=== PATIENT | female | born 1955 | race Caucasian/White ===

== ENCOUNTER → 2024-01-18 10:17 | Outpatient (REF) | payer OTHER, SELFPAY | LOC: HWRCS 10:17 | PROVIDERS: ATTENDING PHYSICIAN Internal Medicine Cardiovascular Disease; FAMILY PHYSICIAN Family Medicine | DX: R06.02 Shortness of breath (principal) | CPT/HCPCS: 93306 ==

== ENCOUNTER → 2024-01-23 07:26 | Outpatient (REF) | payer OTHER, SELFPAY ==
--- NOTE | 2024-01-23 09:38 | CARDSERVDEF ---
Echocardiogram with Definity completed after protocol screening completed. Allergies verified.
Patent IV site: ____R hand_
IV site flushed with 0.9% NaCl pre and post administration.
Diluted bolus method utilized to enhance visualization of ventricular kaur.
Total volume given: __5__ mL
Patient tolerated all procedures well without complications.
== END ==
LOC: RCS 07:26
PROVIDERS: ATTENDING PHYSICIAN Internal Medicine Cardiovascular Disease; FAMILY PHYSICIAN Family Medicine
DX: R06.02 Shortness of breath (principal)
CPT/HCPCS: 93017; 93350; Q9957

== ENCOUNTER 2024-06-15 16:02 | Emergency (ER) | payer OTHER, SELFPAY ==
[2024-06-15] VITALS (12 sets, daily range): BP systolic 109–140; BP diastolic 69–89
[2024-06-15] MEDS: NSS 1000 IV (16:29)
[2024-06-15] MEDS: ADENOCARD 6 MG IV (16:31)
--- NOTE | 2024-06-15 16:38 | ED.GENMED ---
History of Present Illness
General
Chief Complaint: Heart Rate Problem
Source: patient
Time Seen by Provider: 06/15/24 16:17
History of Present Illness
History of Present Illness:
69yoF with a history of paroxysmal atrial fibrillation not on medications presenting with her for evaluation of palpitations. Symptoms began around 2 PM this afternoon while she was out to lunch with a friend. She reports feeling Her
heart is racing. Symptoms feel similar to her prior episodes of A-fib. She denies any associated dizziness, syncope, chest pain, shortness of breath. Patient states she has been very stressed recently which is a frequent trigger for her episodes.
She has had 3 episodes of atrial fibrillation over the past 5 years. She is prescribed metoprolol which she takes as needed.
Phy Exam
General Physical Exam
General Presentation: well appearing
General age: appears stated age
General Skin: warm and dry
General Habitus: normal
General Mental: alert
ENT Exam
ENT Exam: normocephalic
Cardiovascular Exam
Cardiovascular Exam: no edema and tachycardia
Pulmonary Exam
Pulmonary Exam: lungs clear, no respiratory distress, no crackles and no wheezing
Neurological Exam
Neurological Exam: alert
Pierre Coma Scale
Eye Opening: Spontaneous
Verbal Response: Oriented
Motor Response: Obeys Commands
GCS Total Score: 15
Skin Exam
Skin Exam: normal color and warm/dry
Psychiatric Exam
Psychiatric Exam: normal mood/affect
Course
Orders/Labs/Results
Orders:
Orders
06/15/24 16:03
Electrocardiogram (*1) Urgent
Reason for Study: Palpitations
EKG- Treatment ONCE
06/15/24 16:17
EKG [Electrocardiogram (*1)] Urgent
Reason for Study: Tachycardia
06/15/24 16:18
EKG- Treatment ONCE
06/15/24 16:21
0.9% Sodium Chloride 1000 ml [Nss] 1,000 ml IV BOLUS
Adenosine [Adenocard] 6 mg IV NOW STA
06/15/24 16:24
Adenosine [Adenocard] 18 mg .ROUTE .STK-MED ONE
06/15/24 16:25
Complete Blood Count/With Diff Urgent
Comprehensive Metabolic Panel Urgent
Free T4 Urgent
Magnesium Urgent
TSH Reflex To Free T4 Urgent
06/15/24 17:09
Troponin I Urgent
Abnormal Lab Results
06/15/24
16:25
WBC 11.1 H 10^3/uL
(4.8-10.8)
Absolute Neuts (auto) 7.1 H 10^3/uL
(1.4-6.5)
Absolute Monos (auto) 0.8 H 10^3/uL
(0.1-0.6)
BUN 21 H mg/dl
(7-17)
Creatinine 1.2 H mg/dL
(0.6-1.0)
Glucose 157 H mg/dl
(70-99)
TSH (Reflex) 5.43 H uIU/ml
(0.47-4.68)
06/15/24 16:25
06/15/24 16:25
Vital Signs
Initial and Last Documented VS:
Initial Vital Signs
Temp Resp BP Pulse Ox
98.3 F 16 113/79 98
06/15/24 16:03 06/15/24 16:03 06/15/24 16:03 06/15/24 16:03
Last Documented Vital Signs
Temp Pulse Resp BP Pulse Ox
98.3 F 71 16 112/69 96
06/15/24 16:03 06/15/24 19:35 06/15/24 19:35 06/15/24 19:35 06/15/24 19:35
MDM/Problems Addressed
Differential Diagnosis Includes:
69yoF here with palpitations x 2 days. Hx of afib, only on metoprolol PRN. No associated CP or SOB. Heart rate 190 in triage. Remainder of vitals are stable. She is nontoxic-appearing on exam. Differential diagnosis includes but is not limited
to: SVT, atrial fibrillation with RVR, sinus tachycardia, electrolyte abnormality, thyroid dysfunction
EKG from triage shows SVT with a HR of [address]/T wave changes likely rate related. Patient placed on jewelry setter and cardiac pads. Vagal maneuvers attempted without success. 6mg IV adenosine ordered with conversion to sinus
tachycardia with HR in the 110-120s. Repeat EKG confirms sinus rhythm. Cardiac labs, TSH, and magnesium ordered.
*EKG
Interpreted by ED Provider?: Yes
EKG Intrepretation Date: 06/15/24
Heart Rate: 190
Rate: tachycardiac
Rhythm: SVT
[place]: normal axis
Interval: normal interval
QRS Pattern: normal QRS
Ischemia: non-specific ST changes
*Critical Care Note
Total Time (30-74mins, 75-104mins- exclusive of procedures): 35
Update Note
Update Note:
TSH elevated at 5.4 although free T4 is negative. Remainder of labs overall unremarkable including normal electrolytes and TSH. Patient monitored for several hours post adenosine administration. She remains in NSR, no further events on telemetry.
She is asymptomatic on reassessment. She is stable for discharge. Patient advised to take metoprolol regularly instead of just PRN. Advised close f/u with cardiology. ED return precautions discussed. She expressed understanding and is agreeable to
plan. She was discharged in stable condition.
ED Attending Note
-
Portions of this chart may have been created with voice recognition software.� Occasional wrong word or��sound alike� substitutions may have occurred due to the inherent limitations of voice recognition software.
Discharge Plan
Departure
Patient Disposition: Home (Routine Discharge)
Date of Disposition: 06/15/24
Time of Disposition: 19:11
Patient with high blood pressure during this ER visit?: No
Discharge Problem:
SVT (supraventricular tachycardia)
Instructions: Supraventricular tachycardia (SVT)
Prescriptions:
No Action
vitamin A 2,400 mcg Capsule
2,400 mcg PO DAILY
acetaminophen [Tylenol] 325 mg Tablet
650 mg PO Q6HPRN PRN (Reason: mild pain)
Theragen Tablet
1 tab PO DAILY
potassium 99 mg Tablet
99 mg PO DAILY
calcium carbonate [Calcium 500] 500 mg calcium (1,250 mg) Tablet
500 mg PO DAILY
ascorbic acid (vitamin C) [Vitamin C] 500 mg Tablet
500 mg PO DAILY
metoprolol succinate 25 mg Tablet Extended Release 24 Hr
12.5 mg PO DAILYPRN PRN (Reason: heartrate)
vitamin E 268 mg (400 unit) Capsule
268 mg PO DAILY
cholecalciferol (vitamin D3) [Vitamin D3] 50 mcg (2,000 unit) Tablet
50 mcg PO DAILY
magnesium oxide 400 mg magnesium Tablet
400 mg PO DAILY
Referrals:
Petra Luna MD [Family Provider] -
Activity Restrictions/Additional Instructions:
Take metoprolol as prescribed by your client resolution specialist.
Please call your client resolution specialist on Tuesday for close follow-up. Return to the ER with any new or worsening symptoms.
Interventions
Interventions:
*Risk Screen - Suicide Last Done: 06/15/24 16:07
*General Assessment Last Done: 06/15/24 16:25
*Neglect/Abuse Screening Last Done: 06/15/24 16:07
ED- Fall Risk Assessment Last Done: 06/15/24 16:25
*ED COVID-19 Vaccine History Last Done: 06/15/24 16:06
*Nursing Disposition Last Done: 06/15/24 19:35
ED- Cardiac Assessment Last Done: 06/15/24 16:25
ED- Pulmonary Assessment Last Done: 06/15/24 16:25
Discharge Date and Time
Discharge Date/Time: 06/15/24 19:35
Print Language: MALAY
[2024-06-15 16:42] LABS: % Basophils 0.7 % (0-2); % Eosinophils 1.9 % (0-6); % Immature Granulocytes 0.4 % (0-0.5); % Lymphocytes 26.1 % (20.5-51.1); % Neutrophils 63.9 % (42.2-75.2); Absolute Basophils 0.1 10^3/uL (0-0.2); Absolute Eosinophils 0.2 10^3/uL (0-0.7); Absolute Lymphocytes 2.9 10^3/uL (1.2-3.4); Absolute Monocytes 0.8 10^3/uL (0.1-0.6); Absolute Neutrophils 7.1 10^3/uL (1.4-6.5); Hematocrit 44.3 % (37.0-47.0); Hemoglobin 15.1 g/dL (12.0-16.0); Mean Corp Hgb Conc. 34.1 g/dL (33.0-37.0); Mean Corpuscular Hgb 28.7 pg (27.0-31.0); Mean Corpuscular Volume 84.2 fL (81.0-99.0); Mean Platelet Volume 10.3 fL (7.4-10.4); Nucleated Red Blood Cells % 0 %; Platelet Count 292 10^3/uL (130-400); Red Blood Cell Count 5.26 10^6/uL (4.20-5.40); Red Cell Dist. Width 12.6 % (11.5-14.5); White Blood Cell Count 11.1 10^3/uL (4.8-10.8)
[2024-06-15 16:53] LABS: ALT (SGPT) 31 U/L (0-35); AST (SGOT) 30 U/L (14-36); Albumin 4.6 g/dl (3.5-5.0); Alkaline Phosphatase 66 U/L (38-126); Blood Urea Nitrogen 21 mg/dl (7-17); Calcium 9.9 mg/dl (8.4-10.2); Carbon Dioxide 24 mmol/L (22-30); Glucose 157 mg/dl (70-99); Magnesium 1.9 mg/dl (1.6-2.3); Total Bilirubin 0.3 mg/dl (0.2-1.3); Total Protein 7.8 g/dl (6.3-8.2); eGFR 49.61
[2024-06-15 17:11] LABS: Chloride 104 mmol/L (98-107); Potassium 4.5 mmol/L (3.5-5.1); Sodium 142 mmol/L (135-145)
[2024-06-15 17:40] LABS: Troponin I 0.028 ng/ml
[2024-06-15 18:41] LABS: Free T4 1.12 ng/dl (0.78-2.19)
[2024-06-15 19:26] LABS: TSH Reflex To Free T4 5.43 uIU/ml (0.47-4.68)
== END 2024-06-15 19:35 | disposition home or self-care (01) ==
LOC: EMR 16:02
PROVIDERS: Physician Assistant; EMERGENCY PHYSICIAN Emergency Medicine; FAMILY PHYSICIAN Family Medicine
DX: I47.10 Supraventricular tachycardia, unspecified (principal); I48.0 Paroxysmal atrial fibrillation
CPT/HCPCS: 99283; 96374; 96361; 80053; 83735; 84439; 84443; 84484; 85025; 93005; J0153

== ENCOUNTER 2024-09-11 00:59 | Emergency (ER) | payer OTHER, SELFPAY ==
[2024-09-11 01:13] VITALS: BMI 36.6
[2024-09-11 01:16] VITALS: BP 94/57
[2024-09-11] MEDS: ADENOCARD 6 MG IV (01:25)
[2024-09-11 01:27] VITALS: BP 139/88
--- NOTE | 2024-09-11 01:35 | ED.GENMED ---
History of Present Illness
General
Chief Complaint: Heart Rate Problem
Source: patient
Exam Limitations: none
Time Seen by Provider: 09/11/24 01:12
Nursing documentation reviewed up to this point in time: agreed with
History of Present Illness
History of Present Illness:
Patient with history of paroxysmal atrial fibrillation and SVT, presents to ED secondary to recurrent chest palpitations with lightheadedness, while watching TV at home, shortly prior to arrival. Denies chest pain. Denies shortness of breath.
Denies nausea or vomiting. Denies headache. Denies recent illness. Denies recent change in medications or diet. In fact, patient does not take any medications daily. However, patient states that she has seen medical billing and coding specialist approxi-1 year ago,
during which time medication was recommended, which she is currently not taking.
Review of Systems
Review of Systems
Allergies reviewed?: Yes
All Other Systems: ROS reviewed and negative except as documented in HPI and ROS
Constitutional: Reports no symptoms
Respiratory: Reports no symptoms; Denies trouble breathing
Cardiac: Reports palpitations; Denies chest pain
ABD/GI: Reports no symptoms
Musculoskeletal: Reports no symptoms
Skin: Reports no symptoms
Neurological: Reports no symptoms
Phy Exam
Physical Exam
Physical Exam:
Physical Exam
General: mild distress, not acutely ill. afebrile
Head: nc/at. eomi
Neck: supple. no meningeal signs.
Heart: tachycardic, no murmur.
Lungs: no acute respiratory distress. clear bilaterally
Abdomen: normal bowel sounds. not tender.
Neuro: alert and oriented x 3. no focal neurological deficits
Skin: no rash
Psychiatric: well kept. interactive and cooperative
Extremities: no edema. no calf tenderness.
Course
Orders/Labs/Results
Orders:
Orders
09/11/24 00:59
Electrocardiogram (*1) Urgent
Reason for Study: Atrial Fibrillation
09/11/24 01:00
EKG- Treatment ONCE
09/11/24 01:14
Adenosine [Adenocard] 6 mg .ROUTE .STK-MED ONE
09/11/24 01:20
Complete Blood Count/With Diff Urgent
09/11/24 01:24
Adenosine [Adenocard] 6 mg IV NOW STA
09/11/24 01:25
EKG [Electrocardiogram (*1)] Urgent
Reason for Study: Tachycardia
EKG- Treatment ONCE
09/11/24 01:31
EKG [Electrocardiogram (*1)] Urgent
Reason for Study: Tachycardia
EKG- Treatment ONCE
09/11/24 01:45
Comprehensive Metabolic Panel Urgent
Comment: REDRAW
Magnesium Urgent
09/11/24 02:45
Potassium Chloride [KCl] 40 meq PO NOW STA
Abnormal Lab Results
09/11/24 09/11/24
01:20 01:45
Absolute Lymphs (auto) 4.5 H 10^3/uL
(1.2-3.4)
Absolute Monos (auto) 1.0 H 10^3/uL
(0.1-0.6)
Potassium 3.3 L mmol/L
(3.5-5.1)
Chloride 110 H mmol/L
(98-107)
Carbon Dioxide 19 L mmol/L
(22-30)
BUN 20 H mg/dl
(7-17)
Glucose 150 H mg/dl
(70-99)
Calcium 7.9 L mg/dl
(8.4-10.2)
Total Protein 5.9 L g/dl
(6.3-8.2)
Albumin 3.4 L g/dl
(3.5-5.0)
09/11/24 01:20
09/11/24 01:45
Vital Signs
Initial and Last Documented VS:
Initial Vital Signs
Temp Pulse Resp Pulse Ox
97.9 F 190 20 99
09/11/24 01:06 09/11/24 01:06 09/11/24 01:06 09/11/24 01:06
Last Documented Vital Signs
Temp Pulse Resp BP Pulse Ox
97.9 F 85 13 116/64 99
09/11/24 01:06 09/11/24 02:45 09/11/24 02:45 09/11/24 02:00 09/11/24 01:06
MDM/Problems Addressed
MDM/Problems Addressed:
Patient evaluated immediately upon arrival secondary to increased heart rate secondary to SVT. Valsalva maneuver performed at bedside, without improvement. As such, decision made to administer adenosine 6 mg IV, with resolution of SVT. Repeat EKG
confirms sinus rhythm. Patient will be observed further with blood work, along with IV fluid administration.
Patient remained stable in sinus rhythm during observation. Potassium repleted. Patient will be advised to continue hydration at home, along with cardiology follow-up, as an outpatient.
Critical care statement: A total of 30 minutes of critical care time was provided for this patient. This includes management of unstable vital signs, evaluation of the patient at bedside, reviewing the patient's pertinent medical records, review of
old EKGs and review of pertinent medical records. This time with separate from time utilized to perform the aforementioned documented procedures
*EKG
Interpreted by ED Provider?: Yes
EKG Intrepretation Date: 09/11/24
Heart Rate: 190
Rate: tachycardiac
Rhythm: SVT
[place]: normal axis
*Critical Care Note
Total Time (30-74mins, 75-104mins- exclusive of procedures): 30 min
ED Attending Note
-
Portions of this chart may have been created with voice recognition software.� Occasional wrong word or��sound alike� substitutions may have occurred due to the inherent limitations of voice recognition software.
Discharge Plan
Departure
Patient Disposition: Home (Routine Discharge)
Date of Disposition: 09/11/24
Time of Disposition: 02:50
Patient with high blood pressure during this ER visit?: No
Condition: Good
Discharge Problem:
SVT (supraventricular tachycardia), Hypokalemia
Instructions: Hypokalemia, Supraventricular tachycardia (SVT), High-potassium diet
Prescriptions:
No Action
No Current Medications
0
Referrals:
Petra Luna MD [Family Provider] -
Scar Segura DO [Active] -
Activity Restrictions/Additional Instructions:
As discussed, please follow-up with your medical billing and coding specialist for further evaluation and treatment.
Interventions
Interventions:
*Risk Screen - Suicide Last Done: 09/11/24 01:06
*General Assessment Last Done: 09/11/24 01:06
*Neglect/Abuse Screening Last Done: 09/11/24 01:06
ED- Fall Risk Assessment Last Done: 09/11/24 01:18
*ED COVID-19 Vaccine History Last Done: 09/11/24 03:06
*Nursing Disposition Last Done: 09/11/24 03:06
ED- Cardiac Assessment Last Done: 09/11/24 01:18
ED- Pulmonary Assessment Last Done: 09/11/24 01:18
Discharge Date and Time
Discharge Date/Time: 09/11/24 03:06
Print Language: SAMI
[2024-09-11 01:36] LABS: % Basophils 0.9 % (0-2); % Eosinophils 3.1 % (0-6); % Immature Granulocytes 0.2 % (0-0.5); % Lymphocytes 41.4 % (20.5-51.1); % Monocytes 8.8 % (1.7-9.3); % Neutrophils 45.6 % (42.2-75.2); Absolute Basophils 0.1 10^3/uL (0-0.2); Absolute Eosinophils 0.3 10^3/uL (0-0.7); Absolute Lymphocytes 4.5 10^3/uL (1.2-3.4); Absolute Neutrophils 4.9 10^3/uL (1.4-6.5); Hemoglobin 15.3 g/dL (12.0-16.0); Mean Corpuscular Hgb 28.5 pg (27.0-31.0); Mean Platelet Volume 10.2 fL (7.4-10.4); Nucleated Red Blood Cells % 0 %; Platelet Count 297 10^3/uL (130-400); Red Blood Cell Count 5.36 10^6/uL (4.20-5.40); Red Cell Dist. Width 12.6 % (11.5-14.5); White Blood Cell Count 10.8 10^3/uL (4.8-10.8)
[2024-09-11 02:00] VITALS: BP 116/64
[2024-09-11 02:07] LABS: ALT (SGPT) 21 U/L (0-35); AST (SGOT) 19 U/L (14-36); Albumin 3.4 g/dl (3.5-5.0); Alkaline Phosphatase 77 U/L (38-126); Blood Urea Nitrogen 20 mg/dl (7-17); Calcium 7.9 mg/dl (8.4-10.2); Carbon Dioxide 19 mmol/L (22-30); Chloride 110 mmol/L (98-107); Estimated Creatinine Clearance 88 ml/min; Glucose 150 mg/dl (70-99); Magnesium 1.8 mg/dl (1.6-2.3); Potassium 3.3 mmol/L (3.5-5.1); Sodium 138 mmol/L (135-145); Total Bilirubin 0.5 mg/dl (0.2-1.3); Total Protein 5.9 g/dl (6.3-8.2); eGFR > 60.00
[2024-09-11] MEDS: KCL 40 MEQ PO (02:50)
== END 2024-09-11 03:06 | disposition home or self-care (01) ==
LOC: EMR 00:59
PROVIDERS: Emergency Medicine; EMERGENCY PHYSICIAN Emergency Medicine; FAMILY PHYSICIAN Family Medicine
DX: I47.10 Supraventricular tachycardia, unspecified (principal); E87.6 Hypokalemia; I48.0 Paroxysmal atrial fibrillation
CPT/HCPCS: 99291; 96374; 80053; 83735; 85025; 93005; J0153

== ENCOUNTER 2024-10-06 18:21 | Emergency (ER) | payer OTHER, SELFPAY ==
[2024-10-06 18:25] VITALS: BP 162/102
[2024-10-06 19:52] VITALS: BP 135/77
[2024-10-06 20:00] VITALS: BP 125/83
[2024-10-06 21:00] VITALS: BP 123/68
--- NOTE | 2024-10-06 21:02 | ED.GENMED ---
History of Present Illness
General
Chief Complaint: Heart Rate Problem
Source: patient and spouse
Exam Limitations: none
Time Seen by Provider: 10/06/24 20:54
Nursing documentation reviewed up to this point in time: agreed with
History of Present Illness
History of Present Illness:
69-year-old female past medical history of SVT presenting to the emergency department today with concerns of palpitations prior to arrival that have since resolved. Denies any ongoing symptoms throughout her stay here. Has followed up with
cardiology in the past that did not recommend any medications for similar symptoms.
Review of Systems
Review of Systems
Allergies reviewed?: Yes
All Other Systems: ROS reviewed and negative except as documented in HPI and ROS
Phy Exam
Physical Exam
Physical Exam:
GENERAL: Alert , in no apparent distress
EYE: pupils equal and reactive
NECK: Supple, no significant adenopathy.
ENT: o/p clr, mmm.
CARDIAC: Regular rate and rhythm .
LUNGS: Clear breath sounds bilaterally, no acute respiratory distress, no wheezes/rales/rhonchi
ABDOMEN: Soft, without focal tenderness, no r/g, no cvat
NEUROLOGICAL: Alert and oriented, no focal neuro deficits
SKIN: Warm and dry, skin intact.
MUSCULOSKELETAL: No edema, well perfused.
PSYCH: Normal and appropriate interaction.
Course
Orders/Labs/Results
Orders:
Orders
10/06/24 18:22
Electrocardiogram (*1) Urgent
Reason for Study: Tachycardia
EKG- Treatment ONCE
Vital Signs
Initial and Last Documented VS:
Initial Vital Signs
Temp Pulse Resp BP Pulse Ox
98.4 F 107 16 162/102 96
10/06/24 18:25 10/06/24 18:25 10/06/24 18:25 10/06/24 18:25 10/06/24 18:25
Last Documented Vital Signs
Temp Pulse Resp BP Pulse Ox
98.4 F 71 16 123/68 97
10/06/24 18:25 10/06/24 21:00 10/06/24 21:00 10/06/24 21:00 10/06/24 21:00
MDM/Problems Addressed
MDM/Problems Addressed:
69-year-old female presenting to the emergency department today with concerns of palpitations prior to arrival lasted about a half an hour and then resolved on her way to the ER. On arrival she is initially mildly tachycardic in sinus rhythm during
my assessment patient had normal vital signs in no distress and was requesting to leave. It was offered to her to get additional testing including labs and further monitoring. She claims she follow-up otherwise feels well. She was given strict
return precautions for worsening symptoms.
*Critical Care Note
Total Time (30-74mins, 75-104mins- exclusive of procedures): Not Applicable
ED Attending Note
-
Portions of this chart may have been created with voice recognition software.� Occasional wrong word or��sound alike� substitutions may have occurred due to the inherent limitations of voice recognition software.
Discharge Plan
Departure
Patient Disposition: Home (Routine Discharge)
Date of Disposition: 10/06/24
Time of Disposition: 21:03
Patient with high blood pressure during this ER visit?: No
Condition: Good
Covid-19: Not Applicable
Discharge Problem:
Heart palpitations
Instructions: Palpitations (DC)
Prescriptions:
No Action
No Current Medications
0
Referrals:
Petra Luna MD [Family Provider] -
Rosalind Martinez, [Active] - Follow up in 10 days
Activity Restrictions/Additional Instructions:
You came to the emergency department today with concerns of palpitations. Here your EKG was reassuring and your cardiac monitoring was reassuring. Please follow closely with cardiology. Return for any recurrence of symptoms.
Interventions
Interventions:
*Risk Screen - Suicide Last Done: 10/06/24 18:27
*Neglect/Abuse Screening Last Done: 10/06/24 18:27
ED- Fall Risk Assessment Last Done: 10/06/24 21:06
*ED COVID-19 Vaccine History Last Done: 10/06/24 21:06
*Nursing Disposition Last Done: 10/06/24 21:06
ED- Cardiac Assessment Last Done: 10/06/24 21:06
ED- Pulmonary Assessment Last Done: 10/06/24 21:06
Discharge Date and Time
Discharge Date/Time: 10/06/24 21:07
Print Language: TAMAZIGHT
== END 2024-10-06 21:07 | disposition home or self-care (01) ==
LOC: EMR 18:21
PROVIDERS: EMERGENCY PHYSICIAN Student in an Organized Health Care Education/Training Program; FAMILY PHYSICIAN Family Medicine
DX: R00.2 Palpitations (principal)
CPT/HCPCS: 99283; 93005

== ENCOUNTER 2024-11-25 19:36 | Emergency (ER) | payer OTHER, SELFPAY ==
[2024-11-25 19:52] VITALS: BMI 38.7
--- NOTE | 2024-11-25 19:53 | ED.GENMED ---
History of Present Illness
General
Chief Complaint: Heart Rate Problem
Time Seen by Provider: 11/25/24 19:53
History of Present Illness
History of Present Illness:
TIME OF INITIAL ENCOUNTER: 7:55 PM
HPI: Patient presents with palpitations. This feels similar to the times she has had SVT in the past. She is no longer taking any beta-nuris as she was told that the dose that she would on probably would not prevent this from occurring. She
does seen Dr. Ferrer in the past. She has tried vagal maneuvers at home which have not helped.
EXAM:
GENERAL: Well appearing in no distress
HEENT: Moist oral mucosa
CARDIOVASCULAR: No murmurs, tachycardic heart rate, regular rhythm, No chest wall tenderness
PULMONARY: No respiratory distress, breath sounds are clear and equal
ABDOMEN: Soft with no peritoneal signs, no tenderness
NEUROLOGIC: Excellent strength all extremities, no coordination deficits
PSYCHIATRIC: Appropriate mental status, normal insight and judgement
EXTREMITIES: Nontender, no edema, moves all extremities equally
SKIN: No rash, no lesions
NUMBER AND COMPLEXITY OF PROBLEMS ADDRESSED AT THE ENCOUNTER
� Chronic conditions affecting care: SVT
� Acute Exacerbation and/or Progression of Chronic Illness: This is an acute but recurrent problem
� Differential Diagnosis includes: SVT, atrial tachycardia, atrial flutter, sinus tachycardia, hypokalemia
AMOUNT AND/OR COMPLEXITY OF DATA TO BE REVIEWED AND ANALYZED
� I performed an independent evaluation of and my interpretation is:
EKG: SVT rate of 185, ST abnormality likely rate related
CT:
X-rays:
Laboratory Studies: White count 14.2, hemoglobin normal, potassium 4.3, glucose 172 otherwise labs unremarkable
Other:
� Review of other/old records: I reviewed records and she has had similar episodes in the past and has been hypokalemic in the past
� Clinical information was obtained by an independent historian: I spoke to her at bedside
� Prescriptions/Medications Considered but not given:
� Further testing considered but not performed:
RISK OF COMPLICATIONS AND/OR MORBIDITY OR MORTALITY OF PATIENT MANAGEMENT
� Social determinants of health affecting care: Lives at home
� Discussion with other providers:
� Escalation of care including admission/observation vs risk of discharge considered: The patient was seen immediately upon arrival with rates in the 180s and monitoring consistent with SVT. She attempted vagal maneuvers but
this was not successful x 2. We then gave 6 mg of adenosine as she states that this dose usually works for her. This worked on the first attempt. She is now sinus with rate of about 100.
ANY OTHER UPDATES:
The patient did go back into SVT about an hour after initial adenosine given. We then gave another 6 mg of adenosine, IV Lopressor and she did convert, we also gave oral metoprolol. She wishes to be seen by the other cardiology group as he was not
happy with the cardiology that she saw initially ([facility]).
Phy Exam
Physical Exam
Physical Exam:
See HPI
Course
Orders/Labs/Results
Orders:
Orders
11/25/24 19:39
Electrocardiogram (*1) Urgent
Reason for Study: Tachycardia
EKG- Treatment ONCE
11/25/24 20:02
Complete Blood Count/With Diff Urgent
Comprehensive Metabolic Panel Urgent
Free T4 Urgent
Magnesium Urgent
TSH Reflex To Free T4 Urgent
11/25/24 20:03
Electrocardiogram (*1) Urgent
Reason for Study: Palpitations
EKG- Treatment ONCE
11/25/24 20:04
Electrocardiogram (*1) Urgent
Reason for Study: Palpitations
EKG- Treatment ONCE
11/25/24 20:39
Adenosine [Adenocard] 6 mg IV NOW STA
Adenosine [Adenocard] 6 mg IV NOW STA
Metoprolol [Lopressor] 5 mg .ROUTE .STK-MED ONE
Metoprolol [Lopressor] 5 mg IV NOW STA
11/25/24 20:43
Metoprolol [Lopressor] 5 mg IV NOW STA
11/25/24 21:12
Metoprolol Xl [Toprol Xl] 25 mg PO NOW STA
Abnormal Lab Results
11/25/24
20:02
WBC 14.2 H 10^3/uL
(4.8-10.8)
Absolute Neuts (auto) 8.7 H 10^3/uL
(1.4-6.5)
Absolute Lymphs (auto) 4.1 H 10^3/uL
(1.2-3.4)
Absolute Monos (auto) 1.0 H 10^3/uL
(0.1-0.6)
BUN 30 H mg/dl
(7-17)
Glucose 172 H mg/dl
(70-99)
TSH (Reflex) 6.08 H uIU/ml
(0.47-4.68)
11/25/24 20:02
11/25/24 20:02
Vital Signs
Blood pressure: 126/75
Initial and Last Documented VS:
Initial Vital Signs
Temp Pulse Resp Pulse Ox
36.6 C 197 18 98
11/25/24 19:39 11/25/24 19:39 11/25/24 19:39 11/25/24 19:39
Last Documented Vital Signs
Temp Pulse Resp BP Pulse Ox
36.6 C 79 19 126/75 96
11/25/24 19:39 11/25/24 21:28 11/25/24 19:55 11/25/24 21:28 11/25/24 19:55
*Critical Care Note
Total Time (30-74mins, 75-104mins- exclusive of procedures): Not Applicable
ED Attending Note
-
Portions of this chart may have been created with voice recognition software.� Occasional wrong word or��sound alike� substitutions may have occurred due to the inherent limitations of voice recognition software.
Discharge Plan
Departure
Patient Disposition: Home (Routine Discharge)
Date of Disposition: 11/25/24
Time of Disposition: 21:22
Patient with high blood pressure during this ER visit?: Yes
Discharge Problem:
SVT (supraventricular tachycardia)
Instructions: Supraventricular tachycardia (SVT)
Prescriptions:
New
metoprolol succinate 25 mg tablet extended release 24 hr
25 mg PO DAILY Qty: 30 0RF
Referrals:
Vladimir Akhtar MD [Active] - Follow up in 1 week
Activity Restrictions/Additional Instructions:
We gave you 6 mg of adenosine successfully converted due to a normal rhythm and then it recurred so we gave you a second dose. We then gave you 5 mg of IV Lopressor and I recommend that you go on metoprolol orally daily. At your request, I have
given you the contact information for a different technical research scientist in the other cardiology group affiliated with [facility] cardiology, Dr. Akhtar. Return here if worse or other concerns.
Interventions
Interventions:
*Risk Screen - Suicide Last Done: 11/25/24 19:39
*General Assessment Last Done: 11/25/24 19:39
*Neglect/Abuse Screening Last Done: 11/25/24 19:39
*Nursing Disposition Last Done: 11/25/24 21:47
ED- Cardiac Assessment Last Done: 11/25/24 19:53
Discharge Date and Time
Discharge Date/Time: 11/25/24 21:48
Print Language: GUATEMALAN
[2024-11-25 20:15] LABS: Hematocrit 43.9 % (37.0-47.0); Hemoglobin 15.2 g/dL (12.0-16.0); Mean Corp Hgb Conc. 34.6 g/dL (33.0-37.0); Mean Corpuscular Hgb 29.2 pg (27.0-31.0); Mean Corpuscular Volume 84.4 fL (81.0-99.0); Mean Platelet Volume 10.1 fL (7.4-10.4); Platelet Count 276 10^3/uL (130-400); Red Cell Dist. Width 12.7 % (11.5-14.5); White Blood Cell Count 14.2 10^3/uL (4.8-10.8)
[2024-11-25 20:33] LABS: % Basophils 0.6 % (0-2); % Eosinophils 1.9 % (0-6); % Immature Granulocytes 0.3 % (0-0.5); % Lymphocytes 28.8 % (20.5-51.1); % Monocytes 7.2 % (1.7-9.3); % Neutrophils 61.2 % (42.2-75.2); Absolute Basophils 0.1 10^3/uL (0-0.2); Absolute Eosinophils 0.3 10^3/uL (0-0.7); Absolute Lymphocytes 4.1 10^3/uL (1.2-3.4); Absolute Neutrophils 8.7 10^3/uL (1.4-6.5); Nucleated Red Blood Cells % 0 %
[2024-11-25 20:35] LABS: ALT (SGPT) 28 U/L (0-35); AST (SGOT) 24 U/L (14-36); Albumin 4.1 g/dl (3.5-5.0); Alkaline Phosphatase 97 U/L (38-126); Blood Urea Nitrogen 30 mg/dl (7-17); Calcium 9.4 mg/dl (8.4-10.2); Carbon Dioxide 23 mmol/L (22-30); Chloride 106 mmol/L (98-107); Estimated Creatinine Clearance 81 ml/min; Glucose 172 mg/dl (70-99); Magnesium 2.1 mg/dl (1.6-2.3); Potassium 4.3 mmol/L (3.5-5.1); Sodium 141 mmol/L (135-145); Total Bilirubin 0.4 mg/dl (0.2-1.3); Total Protein 7.1 g/dl (6.3-8.2); eGFR > 60.00
[2024-11-25] MEDS: ADENOCARD 6 MG IV ×2 (20:46→20:47)
[2024-11-25] MEDS: LOPRESSOR 5 MG IV (20:46)
[2024-11-25 21:16] LABS: TSH Reflex To Free T4 6.08 uIU/ml (0.47-4.68)
[2024-11-25] MEDS: TOPROL XL 25 MG PO (21:28)
[2024-11-25 21:46] LABS: Free T4 1.01 ng/dl (0.78-2.19)
== END 2024-11-25 21:48 | disposition home or self-care (01) ==
LOC: EMR 19:36
PROVIDERS: EMERGENCY PHYSICIAN Emergency Medicine; FAMILY PHYSICIAN Family Medicine
DX: I47.10 Supraventricular tachycardia, unspecified (principal); R03.0 Elevated blood-pressure reading, without diagnosis of hypertension
CPT/HCPCS: 99284; 96374; 96375; 80053; 83735; 84439; 84443; 85025; 93005

== ENCOUNTER 2024-11-30 14:59 | Emergency (ER) | payer OTHER, SELFPAY ==
[2024-11-30] VITALS (8 sets, daily range): BP systolic 108–147; BP diastolic 62–101; BMI 38.4
[2024-11-30] MEDS: ADENOCARD 12 MG IV (15:18)
--- NOTE | 2024-11-30 16:18 | ED.GENMED ---
History of Present Illness
General
Chief Complaint: Heart Rate Problem
Time Seen by Provider: 11/30/24 15:12
History of Present Illness
History of Present Illness:
69-year-old female presents the emergency department for evaluation of recurrent SVT. Second episode this week, estimates as many as 6 episodes in the past 6 months. Was previously seen electrophysiology but did not want to undergo an ablation.
She is currently on metoprolol 25 mg.
Review of Systems
Review of Systems
Allergies reviewed?: Yes
All Other Systems: ROS reviewed and negative except as documented in HPI and ROS
Phy Exam
Physical Exam
Physical Exam:
GEN: Well appearing, NAD, WDWN
HEENT: Oral mucosa moist, no scleral icterus
Cardiac: Markedly tachycardic
Lung: No respiratory distress, no tachypnea
MSK: No gross deformity or injuries
Skin: Good color, no pallor or jaundice, no rashes
Neuro: AO x3, moves all extremities freely
Psych: Calm, cooperative
Course
Orders/Labs/Results
Orders:
Orders
11/30/24 15:00
EKG [Electrocardiogram (*1)] Urgent
Reason for Study: Tachycardia
EKG- Treatment ONCE
11/30/24 15:17
Adenosine [Adenocard] 12 mg IV NOW STA
11/30/24 15:24
EKG [Electrocardiogram (*1)] Urgent
Reason for Study: Tachycardia
EKG- Treatment ONCE
Vital Signs
Initial and Last Documented VS:
Initial Vital Signs
Temp Pulse Resp Pulse Ox
97.7 F 187 18 98
11/30/24 15:02 11/30/24 15:02 11/30/24 15:02 11/30/24 15:02
Last Documented Vital Signs
Temp Pulse Resp BP Pulse Ox
97.7 F 96 21 109/62 95
11/30/24 15:02 11/30/24 15:30 11/30/24 15:30 11/30/24 15:30 11/30/24 15:30
MDM/Problems Addressed
MDM/Problems Addressed:
SVT terminated after single dose of adenosine. Remained in normal sinus rhythm while in the ED. Recommend increasing metoprolol to 50 mg and follow-up again with EP to discuss definitive plan
*Critical Care Note
Total Time (30-74mins, 75-104mins- exclusive of procedures): Not Applicable
ED Attending Note
-
Portions of this chart may have been created with voice recognition software.� Occasional wrong word or��sound alike� substitutions may have occurred due to the inherent limitations of voice recognition software.
Discharge Plan
Departure
Patient Disposition: Home (Routine Discharge)
Date of Disposition: 11/30/24
Time of Disposition: 16:21
Patient with high blood pressure during this ER visit?: No
Discharge Problem:
Paroxysmal supraventricular tachycardia
Instructions: Supraventricular tachycardia (SVT)
Prescriptions:
No Action
metoprolol succinate 25 mg tablet extended release 24 hr
25 mg PO DAILY Qty: 30 0RF
Referrals:
Petra Luna MD [Family Provider] -
Scar Segura, [Active] -
Activity Restrictions/Additional Instructions:
Increase your metoprolol to 50 mg daily, this can be in 1 or 2 divided doses
Interventions
Interventions:
*Risk Screen - Suicide Last Done: 11/30/24 15:02
*General Assessment Last Done: 11/30/24 15:02
*Neglect/Abuse Screening Last Done: 11/30/24 15:02
*ED COVID-19 Vaccine History Last Done: 11/30/24 15:02
ED- Cardiac Assessment Last Done: 11/30/24 15:15
ED- Pulmonary Assessment Last Done: 11/30/24 15:15
Discharge Date and Time
Print Language: MALIAN
== END 2024-11-30 16:46 | disposition home or self-care (01) ==
LOC: EMR 14:59
PROVIDERS: EMERGENCY PHYSICIAN Emergency Medicine; FAMILY PHYSICIAN Family Medicine
DX: I47.19 Other supraventricular tachycardia (principal); Z79.899 Other long term (current) drug therapy
CPT/HCPCS: 99283; 93005

== ENCOUNTER 2025-02-21 19:28 | Emergency (ER) | payer OTHER, SELFPAY ==
[2025-02-21 19:40] VITALS: BMI 39.6
[2025-02-21 19:46] VITALS: BP 112/86
[2025-02-21] MEDS: ADENOCARD 12 MG IV (19:50)
[2025-02-21 19:51] VITALS: BP 124/81
--- NOTE | 2025-02-21 19:52 | ED.GENMED ---
History of Present Illness
General
Chief Complaint: Cardiac Symptoms
Source: patient and records
Exam Limitations: none
Time Seen by Provider: 02/21/25 19:51
Nursing documentation reviewed up to this point in time: agreed with
History of Present Illness
History of Present Illness:
70-year-old female presents with palpitations consistent with her SVT this is her 4th or 5th episode this year has seen Dr. Ferrer talked about ablation she is on metoprolol she is in the process of moving to [place] no chest pain or shortness of
breath, is very active this week in the heat moving, She has been compliant with her metoprolol, unsuccessful vagal maneuvers at home
Past History
Past History
ED Past Medical History: Arrthythmia
Social History
Tobacco: Non-smoker
Alcohol: None
Drug: None
Personal:
Living: with family
Employment: Employed
Review of Systems
Review of Systems
All Other Systems: Not applicable
Constitutional: Denies fever or fatigue
Cardiac: Reports palpitations; Denies chest pain
: Reports no symptoms
Musculoskeletal: Reports no symptoms
Skin: Reports no symptoms
Neurological: Reports no symptoms
Phy Exam
Physical Exam
Physical Exam:
Physical Exam
General: no apparent distress, not acutely ill
Neck: supple.
Heart: Tachycardia
Lungs: no acute respiratory distress. clear bilaterally
Abdomen: not tender.
Neuro: alert and oriented. no focal neurological deficits
Skin: no rash
Psychiatric: well kept. interactive and cooperative
Extremities: no edema.
Course
Orders/Labs/Results
Orders:
Orders
02/21/25 19:41
Adenosine [Adenocard] 12 mg .ROUTE .STK-MED ONE
02/21/25 19:45
Complete Blood Count/With Diff Urgent
Comprehensive Metabolic Panel Urgent
Free T4 Urgent
Magnesium Urgent
TSH Reflex To Free T4 Urgent
Troponin I Urgent
Adenosine [Adenocard] 12 mg IV NOW STA
02/21/25 19:48
Electrocardiogram (*1) Urgent
Reason for Study: Tachycardia
EKG- Treatment ONCE
Abnormal Lab Results
02/21/25
19:45
MPV 10.7 H fL
(7.4-10.4)
Absolute Lymphs (auto) 4.8 H 10^3/uL
(1.2-3.4)
Absolute Monos (auto) 0.8 H 10^3/uL
(0.1-0.6)
BUN 24 H mg/dl
(7-17)
Glucose 143 H mg/dl
(70-99)
TSH (Reflex) 6.10 H uIU/ml
(0.47-4.68)
02/21/25 19:45
02/21/25 19:45
Vital Signs
Initial and Last Documented VS:
Initial Vital Signs
Temp Pulse Resp Pulse Ox
98 F 184 16 99
02/21/25 19:30 02/21/25 19:30 02/21/25 19:30 02/21/25 19:30
Last Documented Vital Signs
Temp Pulse Resp BP Pulse Ox
98 F 72 17 125/72 94
02/21/25 19:30 02/21/25 21:00 02/21/25 21:00 02/21/25 21:00 02/21/25 21:00
MDM/Problems Addressed
Differential Diagnosis Includes:
SVT AF At
Chronic conditions affecting care: Arrhythmia
Acute Exacerbation and/or Progression of Chronic Illness: Arrhythmia
*Pulse Oximetry
SaO2: 99
Oxygen Mode of Delivery: Room air
Patient hypoxic: no
*EKG
Interpreted by ED Provider?: Yes
Interpretation: abnormal
Comparison EKG: changes noted
Heart Rate: 170
Rate: tachycardiac
Rhythm: SVT
Ischemia: non-specific ST changes
*Communication Instructor Interpretation
Rate: tachycardiac
Interpretation: abnormal
Heart Rate: 170
Rhythm: SVT
*Critical Care Note
Total Time (30-74mins, 75-104mins- exclusive of procedures): 12
Data Reviewed
Review of Other/Old Records Reveals: Labs
Source: patient and records
Update Note
Update Note:
Patient successfully cardioverted with 12 mg of adenosine
9:10 PM patient resting comfortably normal sinus rhythm feeling better after fluids, she would like to follow-up with her PCP and eventually cardiology in [place] or [place] where she is moving continue metoprolol
ED Attending Note
-
Portions of this chart may have been created with voice recognition software.� Occasional wrong word or��sound alike� substitutions may have occurred due to the inherent limitations of voice recognition software.
Discharge Plan
Departure
Patient Disposition: Home (Routine Discharge)
Date of Disposition: 02/21/25
Time of Disposition: 21:11
Patient with high blood pressure during this ER visit?: No
Condition: Good
Discharge Problem:
SVT (supraventricular tachycardia)
Prescriptions:
No Action
metoprolol succinate 25 mg tablet extended release 24 hr
25 mg PO DAILY Qty: 30 0RF
Referrals:
PRIVATE,PHYSICIAN [Family Provider, Internal Medicine]
Activity Restrictions/Additional Instructions:
Drink plenty of fluids, continue your metoprolol
Follow-up with your physicians in [place] or [place] return to the ER for recurrence of your symptoms
Interventions
Interventions:
*Risk Screen - Suicide Last Done: 02/21/25 19:30
*General Assessment Last Done: 02/21/25 19:40
*Neglect/Abuse Screening Last Done: 02/21/25 19:30
*ED COVID-19 Vaccine History Last Done: 02/21/25 19:40
ED- Pulmonary Assessment Last Done: 02/21/25 19:40
ED- Cardiac Assessment Last Done: 02/21/25 19:40
Discharge Date and Time
Print Language: [place] CITIZ[place]
--- NOTE | 2025-02-21 19:53 | EDRN ---
pt brought back from triage with #20g PIV to right hand and lab work drawn. dr puente at bedside, pt placed on cardiac monitoring and cardiac pads. per pt this is her 5th time in SVT this year, reports that normally 6mg adenosine does not work and
she needs 12mg. verbal order for 12mg adenosine from dr puente. adenosine given, pt back in sinus rhythm, repeat ekg completed
[2025-02-21 19:55] LABS: Hematocrit 43.9 % (37.0-47.0); Hemoglobin 14.8 g/dL (12.0-16.0); Mean Corp Hgb Conc. 33.7 g/dL (33.0-37.0); Mean Corpuscular Volume 84.4 fL (81.0-99.0); Nucleated Red Blood Cells % 0 %; Platelet Count 259 10^3/uL (130-400); Red Cell Dist. Width 12.6 % (11.5-14.5)
[2025-02-21 20:00] VITALS: BP 126/76
[2025-02-21 20:15] LABS: ALT (SGPT) 22 U/L (0-35); AST (SGOT) 26 U/L (14-36); Albumin 4.6 g/dl (3.5-5.0); Alkaline Phosphatase 81 U/L (38-126); Blood Urea Nitrogen 24 mg/dl (7-17); Calcium 9.0 mg/dl (8.4-10.2); Carbon Dioxide 23 mmol/L (22-30); Chloride 105 mmol/L (98-107); Estimated Creatinine Clearance 81 ml/min; Glucose 143 mg/dl (70-99); Magnesium 2.2 mg/dl (1.6-2.3); Potassium 4.8 mmol/L (3.5-5.1); Sodium 138 mmol/L (135-145); Total Protein 7.7 g/dl (6.3-8.2); eGFR > 60.00
[2025-02-21 20:20] LABS: Troponin I 0.021 ng/ml
[2025-02-21 21:00] VITALS: BP 125/72
== END 2025-02-21 21:58 | disposition home or self-care (01) ==
LOC: EMR 19:28
PROVIDERS: EMERGENCY PHYSICIAN Emergency Medicine
DX: I47.10 Supraventricular tachycardia, unspecified (principal); Z79.899 Other long term (current) drug therapy
CPT/HCPCS: 99285; 96374; 80053; 83735; 84439; 84443; 84484; 85025; 93005; J0153